=== PATIENT | female | born 1965 | race Caucasian/White ===

== ENCOUNTER 2017-03-08 10:45 | Emergency (ER) | payer MEDICAID ==
[~2017-03-08] VITALS: Ht 167.6 cm; Wt 119.7 kg
[2017-03-08 10:50] VITALS: BP_SYST 192
--- NOTE | 2017-03-08 10:55 | NUR ---
Patient to ER bed 4 to gown for evaluation. Side rails up. Report given to Jessica CHAPMAN
--- NOTE | 2017-03-08 11:10 | NUR ---
ER at bedside examining patient.
--- NOTE | 2017-03-08 11:17 | NUR ---
blood drawn by armament repairer.
[2017-03-08] MEDS: LORazepam 1 MG TABLET PO ONE (11:31)
[2017-03-08] MEDS: KETOROLAC TROMETHAMINE 60 MG/2 ML VIAL IM ONE (11:31)
--- NOTE | 2017-03-08 11:31 | NUR ---
Pt medicated with toradol 60 mg IM for pain to behind her right ear.
[2017-03-08] MEDS: INSULIN REGULAR, HUMAN 10 UNITS/0.1 ML INJ SUBCUT ONE (11:39)
[2017-03-08 11:40] LABS: CALCIUM 8.8 mg/dL (8.4-11.0); CREATININE 0.62 mg/dL (0.55-1.30); POTASSIUM 3.5 mmol/L (3.5-5.1)
--- NOTE | 2017-03-08 12:30 | NUR ---
pt seen with eyes closed, comfortable.
[2017-03-08 13:16] VITALS: BP_SYST 135
--- NOTE | 2017-03-08 13:16 | NUR ---
Patient given written and verbal discharge instructions and verbalizes understanding. ER MD discussed with patient the results and treatment provided. Patient in stable condition. ID arm band removed. No Rx given. Patient educated on pain management and to follow up with PMD. Pain Scale 0. Opportunity for questions provided and answered.
== END 2017-03-08 13:16 | disposition home or self-care (01) ==
LOC: SED 10:45
DX: G44.209 Tension-type headache, unspecified, not intractable (principal)
CPT/HCPCS: 36415; 80048; 82962; 96372; 99284; J1885; J1815